=== PATIENT | male | born 1985 | race Asian ===

== ENCOUNTER 2019-09-06 15:55 | Outpatient (CLI) | payer OTHER | END 2019-09-06 16:08 | disposition short-term general hospital (02) | LOC: AMB 15:55 | DX: M25.562 Pain in left knee (principal); Y93.67 Activity, basketball | CPT/HCPCS: A0425; A0429 ==

== ENCOUNTER 2019-09-06 16:14 | Emergency (ER) | payer OTHER ==
[~2019-09-06] VITALS: Ht 170.2 cm; Wt 68.0 kg
[2019-09-06 18:11] VITALS: BP 137/69; TEMP 98.5
== END 2019-09-06 18:36 | disposition home or self-care (01) ==
LOC: ED 16:14
PROC: 2W3MX1Z Immobilization of Left Lower Extremity using Splint (ICD-10-PCS; principal; 2019-09-06)
DX: M25.562 Pain in left knee (principal); X50.1XXA Overexertion from prolonged static or awkward postures, initial encounter; Y93.67 Activity, basketball
CPT/HCPCS: 96372; 99283; J1885; J2930

== ENCOUNTER 2019-10-22 10:32 | Emergency (ER) | payer OTHER ==
[~2019-10-22] VITALS: Ht 170.2 cm; Wt 68.0 kg
[2019-10-22 11:00] LABS: PLATELET COUNT 328 K/uL (142-355)
[2019-10-22 11:08] LABS: POTASSIUM 3.8 mmol/L (3.6-5.2)
[2019-10-22 15:00] VITALS: BP 130/80; TEMP 98
== END 2019-10-22 15:03 | disposition other institution (70) ==
LOC: ED 10:32
PROVIDERS: Emergency Medicine
DX: R45.851 Suicidal ideations (principal)
CPT/HCPCS: 80053; 80307; 80320; 80329; 81000; 85027; 93005; 99285